=== PATIENT | male | born 2000 | race Two or more races ===

== ENCOUNTER 2019-01-09 19:03 | Emergency (ER) | payer MEDICAID ==
[~2019-01-09] VITALS: Ht 172.7 cm; Wt 86.2 kg
[2019-01-09 19:41] VITALS: BP 129/79
== END 2019-01-09 20:49 | disposition left against medical advice (07) ==
LOC: ER 19:10

== ENCOUNTER 2025-03-30 17:48 | Emergency (ER) | payer MEDICAID ==
[~2025-03-30] VITALS: Ht 175.3 cm; Wt 88.2 kg
[2025-03-30 18:51] VITALS: BP 128/74; PULSE 78; RESP 17; TEMP 97.9; O2SAT 97
[2025-03-30] MEDS: HYDROcodone-ACET 10/325MG TAB PO ONE (19:07)
[2025-03-30] MEDS: NEOMYCIN-BACITRACIN-POLYM UNITDOSE PKG TOP OINT TOP ONE (19:09)
--- NOTE | 2025-03-30 20:45 | DVH ---
CLINICAL INDICATION: Fall/trauma TECHNIQUE: XY L KNEE 3V XRAY Comparison: None FINDINGS/IMPRESSION: : There is no evidence of acute fracture or dislocation. Soft tissues are unremarkable.
--- NOTE | 2025-03-30 20:45 | DVH ---
CLINICAL INDICATION: Fall/trauma TECHNIQUE: XY L SHOULDER 2+ VIEW XRAY Comparison: None FINDINGS: No osseous or joint abnormality with no fracture or dislocation. Joint spaces are normal. Soft tissue s appear unremarkable. IMPRESSION: No abnormality demonstrated.
--- NOTE | 2025-03-30 20:47 | DVH ---
CLINICAL INDICATION: Fall/trauma TECHNIQUE: XY L CLAVICLE COMPLETE XRAY Comparison: None FINDINGS: No osseous or joint abnormality with no fracture or dislocation. AC joint appears unremarkable. IMPRESSION: No abnormality demonstrated.
[2025-03-30] MEDS ORDERED: BACIOIN15 TOP (21:19)
[2025-03-30] MEDS ORDERED: IBUP-1455 PO (21:19)
[2025-03-30] MEDS ORDERED: HYDR-4902 PO (21:19)
[2025-03-30] MEDS ORDERED: CEPH250C PO (21:19)
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
== END 2025-03-30 21:38 | disposition home or self-care (01) ==
LOC: ER 17:54
DX: S40.012A Contusion of left shoulder, initial encounter (principal); S80.02XA Contusion of left knee, initial encounter; S00.212A Abrasion of left eyelid and periocular area, initial encounter; S50.812A Abrasion of left forearm, initial encounter; S80.812A Abrasion, left lower leg, initial encounter; V00.131A Fall from skateboard, initial encounter; Y93.89 Activity, other specified; Y92.89 Other specified places as the place of occurrence of the external cause; Y99.8 Other external cause status
CPT/HCPCS: 73000; 73030; 73562